=== PATIENT | female | born 1970 | race Caucasian/White ===

== ENCOUNTER 2017-02-16 15:59 | Emergency (ER) | payer BC ==
[~2017-02-16 15:59] MED LIST: ASPI81TA2 PO; CIPR500T94 PO; CITA20TA5 PO; LEVO50TA5 PO; LISI2.5T PO; LOSA100T6 PO; LOSA50TA2 PO; METF10002 PO; NAPR500T3 PO; PIOG30TA20 PO
[2017-02-16] MEDS ORDERED: IV NORMAL SALINE 1,000ML 1,000 ML IV SCH (17:16)
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
[2017-02-16] MEDS ORDERED: MORPHINE SULFATE 2 MG/ML DISP.SYRIN. ONE (17:21)
[2017-02-16] MEDS ORDERED: KETOROLAC 30 MG/ML VIAL. ONE (17:21)
[2017-02-16] MEDS ORDERED: IV NORMAL SALINE 1,000ML 1,000 ML ONE (17:21)
[2017-02-16] MEDS ORDERED: KETOROLAC 30 MG/ML VIAL. IV ONE (17:30)
[2017-02-16] MEDS ORDERED: MORPHINE SULFATE 2 MG/ML DISP.SYRIN. IV/SQ PRN (17:30)
[2017-02-16 17:50] LABS: BASO # 0.1 x10^3/uL (0.0-0.2); BASO % 1 % (0-3); EOS # 0.2 x10^3/uL (0.0-0.7); EOS % 2 % (0-3); HEMATOCRIT 47.2 % (36.0-47.0); HEMOGLOBIN 16.1 g/dL (12.0-15.5); LYMPH # 2.1 x10^3/uL (1.0-4.8); LYMPH % 18 % (24-48); MEAN CORPUSCULAR HEMOGLOBIN 31 pg (25-35); MEAN CORPUSCULAR HGB CONC 34 g/dL (31-37); MEAN CORPUSCULAR VOLUME 90 fL (79-100); MONO # 0.7 x10^3/uL (0.0-1.1); MONO % 6 % (0-9); NEUT # 8.6 x10^3uL (1.8-7.7); NEUT % 74 % (31-73); PLATELET COUNT 207 x10^3/uL (140-400); RED BLOOD COUNT 5.25 x10^6/uL (3.50-5.40); RED CELL DISTRIBUTION WIDTH 14.3 % (11.5-14.5); WHITE BLOOD COUNT 11.7 x10^3/uL (4.0-11.0)
[2017-02-16 18:01] LABS: ALBUMIN 3.9 g/dL (3.4-5.0); ALBUMIN/GLOBULIN RATIO 0.8 (1.0-1.7); CALCIUM 8.7 mg/dL (8.5-10.1); CREATININE 0.8 mg/dL (0.6-1.0); GFR 77.2; POTASSIUM 4.1 mmol/L (3.5-5.1); TOTAL BILIRUBIN 0.6 mg/dL (0.2-1.0); TOTAL PROTEIN 8.8 g/dL (6.4-8.2)
[2017-02-16 18:12] LABS: BILIRUBIN,URINE NEG (NEG); CLARITY,URINE TURBID; COLOR,URINE YELLOW; GLUCOSE,URINE NEG (NEG); NITRITE,URINE NEG (NEG); RBC,URINE OCC /HPF (0-2); UROBILINOGEN,URINE 0.2 mg/dL (0.2 mg/dL)
[2017-02-16 18:13] LABS: AMORPHOUS SEDIMENT,UR PRESENT /HPF; BACTERIA,URINE FEW /HPF (0-FEW); SQUAMOUS EPITHELIAL CELL,UR MOD /LPF
[2017-02-16] MEDS ORDERED: ONDA8TAB12 PO (18:33)
[2017-02-16] MEDS ORDERED: HYDR-79 PO (18:33)
[2017-02-16 18:50] VITALS: BP 99/58
--- NOTE | 2017-02-17 08:53 | RAD ---
Acute abdomen series History: Abdominal pain. Comparison: 11/05/2012. Findings: Frontal view of the chest. Cardiac silhouette appears within normal limits for size. No pneumoperitoneum or pneumothorax is identified. No acute infiltrate is seen. Supine and upright views of the abdomen. Several air-fluid levels are seen, but the loops of bowel have normal caliber. Bowel gas pattern is nonspecific. The right hip and proximal femur demonstrates postsurgical change. Cholecystectomy clips are present. Impression: No acute abnormality identified in the chest or abdomen.
== END 2017-02-16 18:51 | disposition home or self-care (01) ==
LOC: ER 15:59
DX: A08.4 Viral intestinal infection, unspecified (principal); E86.0 Dehydration; R19.7 Diarrhea, unspecified; R51 Headache; D72.829 Elevated white blood cell count, unspecified; R73.09 Other abnormal glucose; E03.9 Hypothyroidism, unspecified; E11.9 Type 2 diabetes mellitus without complications; E66.9 Obesity, unspecified; I10 Essential (primary) hypertension; Z88.2 Allergy status to sulfonamides
CPT/HCPCS: 36415; 74022; 80053; 81001; 85027; 96361; 96374; 96375; 99285; J1885; J2270; J7030

== ENCOUNTER → 2017-03-04 | Outpatient (CLI) | payer BC ==
[2017-02-16 18:50] VITALS: BP 99/58
[~2017-03-04] MED LIST changes: +HYDR-79 PO; +ONDA8TAB12 PO
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
== END | disposition home or self-care (01) ==
LOC: DXRADRC 09:55
PROVIDERS: ATTEND Physician Assistant Medical
DX: M16.11 Unilateral primary osteoarthritis, right hip (principal); V89.2XXD Person injured in unspecified motor-vehicle accident, traffic, subsequent encounter
CPT/HCPCS: 73501

== ENCOUNTER 2017-05-31 14:12 | Emergency (ER) | payer BC ==
[~2017-05-31 14:12] MED LIST changes: +ASPI-630 PO; -ASPI81TA2 PO; -PIOG30TA20 PO; +PIOG30TA41 PO
--- NOTE | 2017-05-31 14:19 | ED.ADGEN ---
Past History Past Medical History: Anxiety, Hypertension, Hypothyroid Past Surgical History: , Hysterectomy, Other Alcohol Use: Occasionally Drug Use: None Adult General Chief Complaint Chief Complaint Abdominal pain HPI HPI Patient is a 46 year old female who presents with abdominal pain. She suggested a started right lower quadrant has periumbilical in the middle. She states she did have a hard bowel movement yesterday. She states she's had numerous hernia surgeries on the right quadrant. She denies any fevers chills but did have one episode of vomiting today. She denies any blood in her stool or vomit. [facility] to be evaluated as her concerned that could be a incarcerated hernia. Review of Systems Review of Systems Constitutional: Denies fever or chills [] Eyes: Denies change in visual acuity, redness, or eye pain [] HENT: Denies nasal congestion or sore throat [] Respiratory: Denies cough or shortness of breath [] Cardiovascular: No additional information not addressed in HPI [] GI: Denies bloody stools or diarrhea, positive for abdominal pain, nausea, vomiting : Denies dysuria or hematuria [] Musculoskeletal: Denies back pain or joint pain [] Integument: Denies rash or skin lesions [] Neurologic: Denies headache, focal weakness or sensory changes [] Endocrine: Denies polyuria or polydipsia [] Current Medications Current Medications Current Medications Medications (Trade) Dose Ordered Sig/Arian Start Time Stop Time Status Last Admin Dose Admin Iohexol (Omnipaque 240 Mg/ml) 30 ml 1X ONCE 05/31/17 15:00 05/31/17 15:01 DC 05/31/17 16:13 30 ML Iohexol (Omnipaque 300 Mg/ml) 75 ml 1X ONCE 05/31/17 15:20 05/31/17 15:21 DC Morphine Sulfate (Morphine 4mg Syringe) 4 mg PRN Q15MIN PRN 05/31/17 14:45 05/31/17 18:34 DC 05/31/17 15:00 4 MG Ondansetron HCl (Zofran) 4 mg 1X ONCE 05/31/17 15:10 05/31/17 15:11 DC 05/31/17 15:00 4 MG Sodium Chloride 1,000 ml @ 1,000 mls/hr 1X ONCE 05/31/17 18:00 05/31/17 18:34 DC Allergies Allergies Allergies Coded Allergies Type Severity Reaction Last Updated Verified Sulfa (Sulfonamide Antibiotics) Allergy Mild joints swell 08/23/15 Yes Physical Exam Physical Exam Constitutional: Well developed, well nourished, no acute distress, non-toxic appearance. [] HENT: Normocephalic, atraumatic, bilateral external ears normal, oropharynx moist, no oral exudates, nose normal. [] Eyes: PERRLA, EOMI, conjunctiva normal, no discharge. [] Neck: Normal range of motion, no tenderness, supple, no stridor. [] Cardiovascular:Heart rate regular rhythm, no murmur [] Lungs & Thorax: Bilateral breath sounds clear to auscultation [] Abdomen: Bowel sounds normal, soft, palpation the right lower quadrant, no rebound or guarding, no masses, no pulsatile masses. [] Skin: Warm, dry, no erythema, no rash. [] Back: No tenderness, no CVA tenderness. [] Extremities: No tenderness, no cyanosis, no clubbing, ROM intact, no edema. [] Neurologic: Alert and oriented X 3, normal motor function, normal sensory function, no focal deficits noted. [] Psychologic: Affect normal, judgement normal, mood normal. [] Current Patient Data Vital Signs Vital Signs Date Time Temp Pulse Resp B/P (MAP) Pulse Ox O2 Delivery O2 Flow Rate FiO2 05/31/17 14:15 98.2 103 16 94 Room Air Lab Results Laboratory Tests Test 05/31/17 14:50 05/31/17 16:00 White Blood Count 14.7 x10^3/uL (4.0-11.0) H Red Blood Count 5.10 x10^6/uL (3.50-5.40) Hemoglobin 15.6 g/dL (12.0-15.5) H Hematocrit 45.1 % (36.0-47.0) Mean Corpuscular Volume 88 fL (79-100) Mean Corpuscular Hemoglobin 31 pg (25-35) Mean Corpuscular Hemoglobin Concent 35 g/dL (31-37) Red Cell Distribution Width 12.7 % (11.5-14.5) Platelet Count 216 x10^3/uL (140-400) Neutrophils (%) (Auto) 88 % (31-73) H Lymphocytes (%) (Auto) 6 % (24-48) L Monocytes (%) (Auto) 4 % (0-9) Eosinophils (%) (Auto) 1 % (0-3) Basophils (%) (Auto) 0 % (0-3) Neutrophils # (Auto) 13.0 x10^3uL (1.8-7.7) H Lymphocytes # (Auto) 0.9 x10^3/uL (1.0-4.8) L Monocytes # (Auto) 0.6 x10^3/uL (0.0-1.1) Eosinophils # (Auto) 0.1 x10^3/uL (0.0-0.7) Basophils # (Auto) 0.1 x10^3/uL (0.0-0.2) Prothrombin Time 11.2 SEC (9.4-11.4) Prothrombin Time INR 1.1 (0.9-1.1) PTT 25 SEC (23-33) Sodium Level 135 mmol/L (136-145) L Potassium Level 3.9 mmol/L (3.5-5.1) Chloride Level 99 mmol/L (98-107) Carbon Dioxide Level 25 mmol/L (21-32) Anion Gap 11 (6-14) Blood Urea Nitrogen 18 mg/dL (7-20) Creatinine 0.8 mg/dL (0.6-1.0) Estimated GFR (Cockcroft-Gault) 77.2 Glucose Level 126 mg/dL (70-99) H Calcium Level 9.7 mg/dL (8.5-10.1) Total Bilirubin 0.9 mg/dL (0.2-1.0) Direct Bilirubin 0.3 mg/dL (0.0-0.2) H Aspartate Amino Transferase (AST) 25 U/L (15-37) Alanine Aminotransferase (ALT) 33 U/L (14-59) Alkaline Phosphatase 60 U/L (46-116) Creatine Kinase 66 U/L (26-192) Creatine Kinase MB (Mass) 2.5 ng/mL (0.0-3.6) Creatine Kinase MB Relative Index 3.8 % (0-4) Troponin I Quantitative < 0.017 ng/mL (0-0.055) Total Protein 9.4 g/dL (6.4-8.2) H Albumin 4.4 g/dL (3.4-5.0) Lipase 181 U/L (73-393) Serum Test, Qualitative Negative (NEG) Urine Collection Type Void Urine Color Yellow Urine Clarity Clear Urine pH 6.5 Urine Specific [place] 1.015 Urine Protein 30 mg/dl (NEG-TRACE) Urine Glucose (UA) Neg mg/dL (NEG) Urine Ketones (Stick) Trace mg/dL (NEG) Urine Blood Neg (NEG) Urine Nitrite Neg (NEG) Urine Bilirubin Neg (NEG) Urine Urobilinogen Dipstick 0.2 mg/dL (0.2 mg/dL) Urine Leukocyte Esterase Neg (NEG) Urine RBC 0 /HPF (0-2) Urine WBC 0 /HPF (0-4) Urine Squamous Epithelial Cells Occ /LPF Urine Bacteria 0 /HPF (0-FEW) Urine Opiates Screen Pos (NEG) Urine Methadone Screen Neg (NEG) Urine Barbiturates Neg (NEG) Urine Phencyclidine Screen Neg (NEG) Urine Amphetamine/Methamphetamine Neg (NEG) Urine Benzodiazepines Screen Neg (NEG) Urine Cocaine Screen Neg (NEG) Urine Cannabinoids Screen Neg (NEG) Urine Ethyl Alcohol Neg (NEG) EKG EKG [] Radiology/Procedures Radiology/[place] [address] IMAGING REPORT Signed PATIENT: SVETLANA MCKNIGHT ACCOUNT: [id number] : 1970 LOCATION: ER AGE: 46 SEX: F EXAM STATUS: REG ER ORD. PHYSICIAN: JAVED FLORES MD REASON: abd pain PROCEDURE: CT ABD PELV W/ORAL&IV CONTRAST Exam performed: CT scan of the abdomen and pelvis with contrast Clinical Indication: Right-sided abdominal pain for one day Date of Service: 05/31/2017 comparison: None available Technique: Contiguous helical acquisitions are obtained from the lung bases to the pelvis during intravenous administration of [75 cc of Omnipaque 300]. Oral contrast was given. Sagittal and coronal reformatted images were obtained and reviewed. CT abdomen findings: The lung bases appear essentially clear. Visualized heart is normal. The liver, spleen and pancreas appears unremarkable. Cholecystectomy. Both adrenal glands and bilateral kidneys appear normal with symmetric excretion of contrast via both kidneys. The small bowel loops mildly dilated and fluid-filled extending up to the right inguinal hernia which also contains mildly dilated small bowel loops and is probably the cause of obstruction. No inflammatory changes are seen. Aorta is normal in caliber. There is no retroperitoneal lymphadenopathy or mass lesions. No bowel related inflammatory stranding is noted. No obvious stranding is seen in the pericecal region. CT pelvis findings: The pelvic bowel loops are nondilated and unremarkable. The urinary bladder is decompressed. Hysterectomy. Interrogation of bone windows demonstrates no obvious bony abnormality. Sagittal and coronal reformatted images were obtained and reviewed which demonstrate no additional findings. Impression abdomen and pelvis : 1. Right lower abdominal hernia containing mildly dilated small bowel loops with upstream dilated small bowel loops consistent with small bowel obstruction. The critical results were given to the ER physician Dr. Flores in the emergency room soon after completion of the study at 5:48 PM PQRS Compliance Statement: One or more of the following individualized dose reduction techniques were utilized for this examination: 1. Automated exposure control 2. Adjustment of the mA and/or kV according to patient size 3. Use of iterative reconstruction technique Electronically signed by: Ronna Trevino MD (05/31/2017 5:48 PM) [facility] DICTATED AND SIGNED BY: RONNA TREVINO MD DATE: 05/31/17 7129 CC: JAVED FLORES MD; OLGA SIMTH ~ Course & Med Decision Making Course & Med Decision Making Pertinent Labs and Imaging studies reviewed. (See chart for details) CT scan was read out as a hernia with small bowel obstruction with a transition point likely the hernia. I spoke directly to the radiologist who stated it was not strangulated but could likely he come that away easily. Spoke with Dr. Tovar for admission and Dr. Nina who wants the patient to be transferred emergently to [place] to go immediately to the OR. EMS is been contacted and the patient will be transferred emergently to the OR. Patient is agreeable to the plan and is in stable condition at this time. Critical care time on this patient excluding procedures was 45 minutes. It consisted of reviewing medical records, labs, pain control for the patient, reviewing images, speaking with consultants such as radiology and surgery, making arrangements for emergently transferring the patient to [place] to go directly to the OR. Final Impression Final Impression Abdominal pain Small bowel obstruction Problems: Dragon Disclaimer Dragon Disclaimer This electronic medical record was generated, in whole or in part, using a voice recognition dictation system. JAVED FLORES MD May 31, 2017 14:19
[2017-05-31] MEDS ORDERED: IV NORMAL SALINE 1,000ML 1,000 ML IV SCH (14:34)
[2017-05-31] MEDS ORDERED: MORPHINE SULFATE 4 MG/ML DISP.SYRIN. IV/SQ PRN (14:45)
[2017-05-31] MEDS ORDERED: IOHEXOL 240 MG/ML 50ML VIAL. PO ONE (15:00)
[2017-05-31] MEDS ORDERED: ONDANSETRON PF 4 MG/2 ML VIAL. IV ONE (15:10)
[2017-05-31 15:20] LABS: PREG TEST PT QUAL NEGATIVE (NEG)
[2017-05-31] MEDS ORDERED: IOHEXOL 300 MG/ML 75 ML VIAL. IV ONE (15:20)
[2017-05-31 15:23] LABS: BASO # 0.1 x10^3/uL (0.0-0.2); BASO % 0 % (0-3); EOS # 0.1 x10^3/uL (0.0-0.7); EOS % 1 % (0-3); HEMATOCRIT 45.1 % (36.0-47.0); HEMOGLOBIN 15.6 g/dL (12.0-15.5); LYMPH # 0.9 x10^3/uL (1.0-4.8); LYMPH % 6 % (24-48); MEAN CORPUSCULAR HEMOGLOBIN 31 pg (25-35); MEAN CORPUSCULAR HGB CONC 35 g/dL (31-37); MEAN CORPUSCULAR VOLUME 88 fL (79-100); MONO # 0.6 x10^3/uL (0.0-1.1); MONO % 4 % (0-9); NEUT % 88 % (31-73); PLATELET COUNT 216 x10^3/uL (140-400); RED CELL DISTRIBUTION WIDTH 12.7 % (11.5-14.5); WHITE BLOOD COUNT 14.7 x10^3/uL (4.0-11.0)
[2017-05-31 15:33] LABS: ALBUMIN 4.4 g/dL (3.4-5.0); CALCIUM 9.7 mg/dL (8.5-10.1); CREATININE 0.8 mg/dL (0.6-1.0); DIRECT BILIRUBIN 0.3 mg/dL (0.0-0.2); GFR 77.2; POTASSIUM 3.9 mmol/L (3.5-5.1); TOTAL BILIRUBIN 0.9 mg/dL (0.2-1.0); TOTAL PROTEIN 9.4 g/dL (6.4-8.2)
--- NOTE | 2017-05-31 15:47 | EKG ---
[address] [address] Test Date: 2017-05-31 Test Time: 14:47:58 Pat Name: SVETLANA MCKNIGHT Department: Room: Gender: F Linen Controller: BHARATI : 1970 Requested By: JAVED FLORES Order Number: [id number] Reading MD: Measurements Intervals Makinen Rate: 71 P: 21 PA: 154 QRS: 0 QRSD: 78 T: 25 QT: 386 QTc: 424 Interpretive Statements SINUS RHYTHM LEFTWARD AXIS QRS(T) CONTOUR ABNORMALITY CONSIDER ANTEROSEPTAL MYOCARDIAL DAMAGE RI6.01 Unconfirmed report No previous ECG available for comparison
[2017-05-31 16:19] LABS: BILIRUBIN,URINE NEG (NEG); CLARITY,URINE CLEAR; COLOR,URINE YELLOW; GLUCOSE,URINE NEG (NEG)
[2017-05-31 16:20] LABS: BACTERIA,URINE 0 /HPF (0-FEW); NITRITE,URINE NEG (NEG); RBC,URINE 0 /HPF (0-2); UROBILINOGEN,URINE 0.2 mg/dL (0.2 mg/dL); WBC,URINE 0 /HPF (0-4)
[2017-05-31 16:21] LABS: SQUAMOUS EPITHELIAL CELL,UR OCC /LPF
[2017-05-31 16:26] LABS: AMPHETAMINE/METHAMPHETAMINE NEG (NEG); BARBITURATES NEG (NEG); BENZODIAZEPINES NEG (NEG); CANNABINOIDS NEG (NEG); COCAINE NEG (NEG); METHADONE NEG (NEG); OPIATES POS (NEG); PHENCYCLIDINE NEG (NEG)
--- NOTE | 2017-05-31 17:51 | RAD ---
Exam performed: CT scan of the abdomen and pelvis with contrast Clinical Indication: Right-sided abdominal pain for one day Date of Service: 05/31/2017 comparison: None available Technique: Contiguous helical acquisitions are obtained from the lung bases to the pelvis during intravenous administration of [75 cc of Omnipaque 300]. Oral contrast was given. Sagittal and coronal reformatted images were obtained and reviewed. CT abdomen findings: The lung bases appear essentially clear. Visualized heart is normal. The liver, spleen and pancreas appears unremarkable. Cholecystectomy. Both adrenal glands and bilateral kidneys appear normal with symmetric excretion of contrast via both kidneys. The small bowel loops mildly dilated and fluid-filled extending up to the right inguinal hernia which also contains mildly dilated small bowel loops and is probably the cause of obstruction. No inflammatory changes are seen. Aorta is normal in caliber. There is no retroperitoneal lymphadenopathy or mass lesions. No bowel related inflammatory stranding is noted. No obvious stranding is seen in the pericecal region. CT pelvis findings: The pelvic bowel loops are nondilated and unremarkable. The urinary bladder is decompressed. Hysterectomy. Interrogation of bone windows demonstrates no obvious bony abnormality. Sagittal and coronal reformatted images were obtained and reviewed which demonstrate no additional findings. Impression abdomen and pelvis : 1. Right lower abdominal hernia containing mildly dilated small bowel loops with upstream dilated small bowel loops consistent with small bowel obstruction. The critical results were given to the ER physician Dr. Kingsley in the emergency room soon after completion of the study at 5:48 PM PQRS Compliance Statement: One or more of the following individualized dose reduction techniques were utilized for this examination: 1. Automated exposure control 2. Adjustment of the mA and/or kV according to patient size 3. Use of iterative reconstruction technique Electronically signed by: Ronna Trevino MD (05/31/2017 5:48 PM) [facility]
[2017-05-31] MEDS ORDERED: IV NORMAL SALINE 1,000ML 1,000 ML IV ONE (18:00)
[2017-05-31 18:13] VITALS: BP 128/76
== END 2017-05-31 18:30 ==
LOC: ER 14:12
DX: K56.69 Other intestinal obstruction (principal); E03.9 Hypothyroidism, unspecified; F41.9 Anxiety disorder, unspecified; I10 Essential (primary) hypertension; Z88.2 Allergy status to sulfonamides
CPT/HCPCS: 36415; 74177; 80048; 80076; 80305; 80320; 81001; 82553; 83690; 84484; 84703; 85027; 85610; 85730; 93005; 96361; 96374; 96375; 99291; J2270; J2405; Q9966; G0481; 99285-25; J7030

== ENCOUNTER 2017-06-18 22:01 | Emergency (ER) | payer BC ==
[~2017-06-18] VITALS: Ht 160 cm; Wt 70.8 kg
[2017-06-18] MEDS ORDERED: IV NORMAL SALINE 1,000ML 1,000 ML IV ONE ×2 (22:30→23:30)
[2017-06-18] MEDS ORDERED: MORPHINE SULFATE 4 MG/ML DISP.SYRIN. IV/SQ PRN (22:30)
[2017-06-18] MEDS ORDERED: ONDANSETRON PF 4 MG/2 ML VIAL. IV ONE (22:30)
[2017-06-18] MEDS ORDERED: IOHEXOL 300 MG/ML 75 ML VIAL. IV ONE (22:40)
[2017-06-18] MEDS ORDERED: IOHEXOL 240 MG/ML 50ML VIAL. PO ONE (22:40)
[2017-06-18 22:44] LABS: BASO # 0.1 x10^3/uL (0.0-0.2); BASO % 1 % (0-3); EOS # 0.4 x10^3/uL (0.0-0.7); EOS % 5 % (0-3); HEMATOCRIT 39.7 % (36.0-47.0); HEMOGLOBIN 13.6 g/dL (12.0-15.5); LYMPH # 2.6 x10^3/uL (1.0-4.8); LYMPH % 31 % (24-48); MEAN CORPUSCULAR HEMOGLOBIN 30 pg (25-35); MEAN CORPUSCULAR HGB CONC 34 g/dL (31-37); MEAN CORPUSCULAR VOLUME 89 fL (79-100); MONO # 0.6 x10^3/uL (0.0-1.1); MONO % 7 % (0-9); NEUT # 4.6 x10^3uL (1.8-7.7); NEUT % 55 % (31-73); PLATELET COUNT 204 x10^3/uL (140-400); RED BLOOD COUNT 4.48 x10^6/uL (3.50-5.40); RED CELL DISTRIBUTION WIDTH 12.6 % (11.5-14.5); WHITE BLOOD COUNT 8.3 x10^3/uL (4.0-11.0)
[2017-06-18 22:54] LABS: ALBUMIN 3.4 g/dL (3.4-5.0); ALBUMIN/GLOBULIN RATIO 0.8 (1.0-1.7); CALCIUM 8.7 mg/dL (8.5-10.1); CREATININE 0.9 mg/dL (0.6-1.0); GFR 67.4; POTASSIUM 3.8 mmol/L (3.5-5.1); TOTAL BILIRUBIN 0.3 mg/dL (0.2-1.0); TOTAL PROTEIN 7.6 g/dL (6.4-8.2)
[2017-06-18] MEDS ORDERED: HYDROmorphone PF 1 MG/ML DISP.SYRIN IV/SQ PRN (23:00)
--- NOTE | 2017-06-19 00:13 | RAD ---
CT abdomen and pelvis with contrast HISTORY: Severe abdominal pain, history of abdominal hernia and small bowel obstruction repaired. Severe periumbilical and right lower quadrant abdominal pain. TECHNIQUE: Helical CT imaging abdomen and pelvis with oral contrast and 75 mL Omnipaque 300 intravenous contrast. Abdomen findings: Lumbar scoliosis and right L5 spondylolysis. 2 mm right middle lobe pulmonary nodule image 2 is stable. Hypodensity of the liver likely fatty. Mild irregular ductal dilation likely related to cholecystectomy, stable. Kidneys, adrenals, pancreas, spleen unremarkable. Right lower quadrant hernia has been repaired. No bowel obstruction or inflammation. Post surgical change distal small bowel and enterocolic anastomosis at the right abdomen. Appendectomy. No peritoneal free fluid or adenopathy. At the right lower quadrant retroperitoneal abdomen inferior of the kidney and lateral and anterior of the iliacus and psoas muscles there is a hematoma which measures 18 cm longitudinal by 8 cm short axis diameter at the hematoma inferior margin adjacent of the external iliac vessels there is a 1 cm oblong hyperdensity axial images 67, coronal image 29 which could represent a region of contrast extravasation versus a hypervascular lymph node.. Separately at the right lower quadrant abdominal wall at site of hernia repair there is a hematoma within the rectus abdominous which measures 16 cm longitudinal and 8 cm short axis diameter with a subcentimeter focus of hyperdense contrast extravasation superiorly, this hematoma compresses adjacent small bowel loops. There could be communication between the 2 hematomas inferiorly. Pelvis findings: Hematomas at the right lower quadrant described in the abdomen section. Hysterectomy. 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 Postsurgical changes right femur and advanced osteoarthritis of the right hip. IMPRESSION: 1. Right lower quadrant abdominal wall intramuscular hematoma with small focus of contrast extravasation indicating active bleeding with a separate retroperitoneal hematoma within the right lower quadrant abdomen with possible area of contrast extravasation from active bleeding adjacent of the right external iliac vessels. There could be communication between these 2 hematomas within the pelvis. See discussion above. 2. Post surgical changes of the bowel. No bowel obstruction. 3. 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 Critical results called to Dr. Mcmillan at 12:07 AM June 19, 2017. Exposure: One or more of the following individualized dose reduction techniques were utilized for this examination: 1. Automated exposure control 2. Adjustment of the mA and/or kV according to patient size 3. Use of iterative reconstruction technique Electronically signed by: Oscar Olivia MD (06/19/2017 12:09 AM) [facility]
--- NOTE | 2017-06-19 00:31 | PHYS DOC ---
Past History Past Medical History: Depression, Diabetes, Hypertension, Hyperthyroid Past Surgical History: Appendectomy, Cholecystectomy, , Hysterectomy, Other Alcohol Use: None Drug Use: None Adult General Chief Complaint Chief Complaint: ABDOMINAL PAIN HPI HPI Patient is a 46 year old female who presents with abdominal pain. The patient reports sudden onset of right lower quadrant & periumbilical pain about 2 hours prior to arrival while at rest. She reports nausea. She denies fevers/chills, vomiting, diarrhea, constipation, dysuria/hematuria, vaginal bleeding/ discharge. She underwent surgery on 05/31 for incarcerated abdominal hernia with small bowel obstruction by Dr. Knight at [facility]. She was seen for follow up 2 days ago & has been without complaints since the time of her surgery. Review of Systems Review of Systems Constitutional: Denies fever or chills Eyes: Denies change in visual acuity HENT: Denies nasal congestion or sore throat Respiratory: Denies cough or shortness of breath Cardiovascular: Denies chest pain or edema GI: Reports abdominal pain, nausea, denies vomiting, bloody stools or diarrhea : Denies dysuria or hematuria Musculoskeletal: Denies back pain or joint pain Integument: Denies rash or skin lesions Neurologic: Denies headache, focal weakness or sensory changes Current Medications Current Medications Current Medications Medications (Trade) Dose Ordered Sig/Arian Start Time Stop Time Status Last Admin Dose Admin Hydromorphone HCl (Dilaudid) 1 mg PRN Q15MIN PRN 06/18/17 23:00 06/19/17 22:59 Iohexol (Omnipaque 240 Mg/ml) 30 ml 1X ONCE 06/18/17 22:40 06/18/17 22:41 DC 06/18/17 23:39 30 ML Iohexol (Omnipaque 300 Mg/ml) 75 ml 1X ONCE 06/18/17 22:40 06/18/17 22:41 DC 06/18/17 23:39 75 ML Morphine Sulfate (Morphine 4mg Syringe) 4 mg PRN Q15MIN PRN 06/18/17 22:30 06/18/17 22:57 DC 06/18/17 22:33 4 MG Ondansetron HCl (Zofran) 4 mg 1X ONCE 06/18/17 22:30 06/18/17 22:31 DC 06/18/17 22:33 4 MG Sodium Chloride 1,000 ml @ 1,000 mls/hr 1X ONCE 06/18/17 23:30 06/19/17 00:29 06/18/17 23:23 1,000 MLS/HR Allergies Allergies Allergies Coded Allergies Type Severity Reaction Last Updated Verified Sulfa (Sulfonamide Antibiotics) Allergy Mild joints swell 08/23/15 Yes Physical Exam Physical Exam Constitutional: Well developed, well nourished, no acute distress, non-toxic appearance. HENT: Normocephalic, atraumatic, bilateral external ears normal, oropharynx moist, nose normal. Eyes: conjunctiva normal, no discharge. Neck: supple, no stridor. Cardiovascular: RRR, no murmurs, no edema. Lungs & Thorax: LCTAB, no wheezing, no respiratory distress. Abdomen: soft, RLQ & periumbilical tenderness with guarding, no rebound tenderness, firm with palpation over these areas, nondistended. no pulsatile masses. Skin: Warm, dry, no erythema, no rash. Back: No CVA tenderness. Extremities: No tenderness, no edema. Neurologic: Alert and oriented X 3, no focal deficits noted. Psychologic: Affect normal, judgement normal, mood normal. Current Patient Data Vital Signs Vital Signs Date Time Temp Pulse Resp B/P (MAP) Pulse Ox O2 Delivery O2 Flow Rate FiO2 06/18/17 23:54 76 16 108/59 (75) 95 Room Air 06/18/17 22:05 98.5 Lab Results Laboratory Tests Test 06/18/17 22:26 White Blood Count 8.3 x10^3/uL (4.0-11.0) Red Blood Count 4.48 x10^6/uL (3.50-5.40) Hemoglobin 13.6 g/dL (12.0-15.5) Hematocrit 39.7 % (36.0-47.0) Mean Corpuscular Volume 89 fL (79-100) Mean Corpuscular Hemoglobin 30 pg (25-35) Mean Corpuscular Hemoglobin Concent 34 g/dL (31-37) Red Cell Distribution Width 12.6 % (11.5-14.5) Platelet Count 204 x10^3/uL (140-400) Neutrophils (%) (Auto) 55 % (31-73) Lymphocytes (%) (Auto) 31 % (24-48) Monocytes (%) (Auto) 7 % (0-9) Eosinophils (%) (Auto) 5 % (0-3) H Basophils (%) (Auto) 1 % (0-3) Neutrophils # (Auto) 4.6 x10^3uL (1.8-7.7) Lymphocytes # (Auto) 2.6 x10^3/uL (1.0-4.8) Monocytes # (Auto) 0.6 x10^3/uL (0.0-1.1) Eosinophils # (Auto) 0.4 x10^3/uL (0.0-0.7) Basophils # (Auto) 0.1 x10^3/uL (0.0-0.2) Sodium Level 141 mmol/L (136-145) Potassium Level 3.8 mmol/L (3.5-5.1) Chloride Level 103 mmol/L (98-107) Carbon Dioxide Level 29 mmol/L (21-32) Anion Gap 9 (6-14) Blood Urea Nitrogen 17 mg/dL (7-20) Creatinine 0.9 mg/dL (0.6-1.0) Estimated GFR (Cockcroft-Gault) 67.4 BUN/Creatinine Ratio 19 (6-20) Glucose Level 200 mg/dL (70-99) H Lactic Acid Level 2.3 mmol/L (0.4-2.0) H Calcium Level 8.7 mg/dL (8.5-10.1) Total Bilirubin 0.3 mg/dL (0.2-1.0) Aspartate Amino Transferase (AST) 19 U/L (15-37) Alanine Aminotransferase (ALT) 30 U/L (14-59) Alkaline Phosphatase 75 U/L (46-116) Total Protein 7.6 g/dL (6.4-8.2) Albumin 3.4 g/dL (3.4-5.0) Albumin/Globulin Ratio 0.8 (1.0-1.7) L Lipase 234 U/L (73-393) EKG EKG [] Radiology/Procedures Radiology/Procedures PROCEDURE: CT ABD PELV W/ORAL&IV CONTRAST CT abdomen and pelvis with contrast HISTORY: Severe abdominal pain, history of abdominal hernia and small bowel obstruction repaired. Severe periumbilical and right lower quadrant abdominal pain. TECHNIQUE: Helical CT imaging abdomen and pelvis with oral contrast and 75 mL Omnipaque 300 intravenous contrast. Abdomen findings: Lumbar scoliosis and right L5 spondylolysis. 2 mm right middle lobe pulmonary nodule image 2 is stable. Hypodensity of the liver likely fatty. Mild irregular ductal dilation likely related to cholecystectomy, stable. Kidneys, adrenals, pancreas, spleen unremarkable. Right lower quadrant hernia has been repaired. No bowel obstruction or inflammation. Post surgical change distal small bowel and enterocolic anastomosis at the right abdomen. Appendectomy. No peritoneal free fluid or adenopathy. At the right lower quadrant retroperitoneal abdomen inferior of the kidney and lateral and anterior of the iliacus and psoas muscles there is a hematoma which measures 18 cm longitudinal by 8 cm short axis diameter at the hematoma inferior margin adjacent of the external iliac vessels there is a 1 cm oblong hyperdensity axial images 67, coronal image 29 which could represent a region of contrast extravasation versus a hypervascular lymph node.. Separately at the right lower quadrant abdominal wall at site of hernia repair there is a hematoma within the rectus abdominous which measures 16 cm longitudinal and 8 cm short axis diameter with a subcentimeter focus of hyperdense contrast extravasation superiorly, this hematoma compresses adjacent small bowel loops. There could be communication between the 2 hematomas inferiorly. Pelvis findings: Hematomas at the right lower quadrant described in the abdomen section. Hysterectomy. 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 Postsurgical changes right femur and advanced osteoarthritis of the right hip. IMPRESSION: 1. Right lower quadrant abdominal wall intramuscular hematoma with small focus of contrast extravasation indicating active bleeding with a separate retroperitoneal hematoma within the right lower quadrant abdomen with possible area of contrast extravasation from active bleeding adjacent of the right external iliac vessels. There could be communication between these 2 hematomas within the pelvis. See discussion above. 2. Post surgical changes of the bowel. No bowel obstruction. 3. 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 Critical results called to Dr. Mcmillan at 12:07 AM June 19, 2017. Exposure: One or more of the following individualized dose reduction techniques were utilized for this examination: 1. Automated exposure control 2. Adjustment of the mA and/or kV according to patient size 3. Use of iterative reconstruction technique Electronically signed by: Keny Olivia MD (06/19/2017 12:09 AM) [facility] DICTATED AND SIGNED BY: KENY OLIVIA MD DATE: 06/18/17 5077[] Course & Med Decision Making Course & Med Decision Making Pertinent Labs and Imaging studies reviewed. (See chart for details) The patient presents with postoperative abdominal pain. Gave IV fluids, zofran , pain medication. She had brief hypotension with systolic blood pressure of 89 , improving to 111 after administration of IV fluids. She did receive 2 L of normal saline in the emergency department. Not tachycardic, afebrile. Hemoglobin stable at 13.6, normal white blood cell count. CT of the abdomen and pelvis shows large right lower quadrant abdominal wall and retroperitoneal hematoma. Consulted with Dr. Knight of general surgery who recommends transfer to [facility] and recommends consultation with interventional radiology for possible embolization. I did discuss at length with Dr. Arreola of interventional radiology who plans to review the images to determine next steps treatment. Discussed with Dr. Tay who agrees to accept transfer for direct admission. The patient is being transferred in guarded condition. Critical care time: 40 minutes [] Dragon Disclaimer Dragon Disclaimer This chart was dictated in whole or in part using Voice Recognition software in a busy, high-work load, and often noisy Emergency Department environment. It may contain unintended and wholly unrecognized errors or omissions. Departure Departure: Impression: Primary Impression: Abdominal wall hematoma Additional Impressions: Retroperitoneal hematoma Lactic acidosis Disposition: 05 XFER OTHER Condition: GUARDED Referrals: OLGA SMITH (PCP) Problem Qualifiers GREG STAPLES MD Jun 19, 2017 00:31
[2017-06-19 00:58] VITALS: BP 122/70
[2017-06-19 01:12] LABS: BACTERIA,URINE 0 /HPF (0-FEW); BILIRUBIN,URINE NEG (NEG); CLARITY,URINE CLEAR; COLOR,URINE YELLOW; GLUCOSE,URINE NEG (NEG); NITRITE,URINE NEG (NEG); RBC,URINE 0 /HPF (0-2); SQUAMOUS EPITHELIAL CELL,UR FEW /LPF; UROBILINOGEN,URINE 0.2 mg/dL (0.2 mg/dL); WBC,URINE RARE /HPF (0-4)
[2017-06-19] MEDS ORDERED: OXYBUTYNIN CHLORIDE 5 MG TABLET PO ONE (01:30)
[2017-06-19 01:44] LABS: HEMOGLOBIN ISTAT 11.6 gm/dL; POTASSIUM ISTAT 4.1 mmol/L (3.5-5.0)
[2017-06-19] MEDS ORDERED: IV NORMAL SALINE 1,000ML 1,000 ML IV SCH (01:45)
== END 2017-06-19 02:18 | disposition short-term general hospital (02) ==
LOC: ER 22:01
DX: S30.1XXA Contusion of abdominal wall, initial encounter (principal); S36.892A Contusion of other intra-abdominal organs, initial encounter; G89.18 Other acute postprocedural pain; E87.2 Acidosis; E11.9 Type 2 diabetes mellitus without complications; I10 Essential (primary) hypertension; Z88.2 Allergy status to sulfonamides; Z90.49 Acquired absence of other specified parts of digestive tract; Z90.710 Acquired absence of both cervix and uterus; Z98.890 Other specified postprocedural states; X58.XXXA Exposure to other specified factors, initial encounter; E05.90 Thyrotoxicosis, unspecified without thyrotoxic crisis or storm; Y93.89 Activity, other specified; Y99.8 Other external cause status; Y92.89 Other specified places as the place of occurrence of the external cause
CPT/HCPCS: 36415; 74177; 80047; 80053; 81001; 83605; 83690; 85027; 85610; 85730; 96361; 96374; 96375; 99291; J2270; J2405; Q9966; Q9967; J7030

== ENCOUNTER → 2018-01-02 | Outpatient (CLI) | payer BC ==
[~2018-01-02] MED LIST changes: +IOHEXOL 240 MG/ML 50ML VIAL. ONE; +IOHEXOL 300 MG/ML 75 ML VIAL. IV ONE; +NAPR-514 PO; -NAPR500T3 PO
--- NOTE | 2018-01-02 14:37 | RAD ---
CT abdomen and pelvis with contrast Indication: RECURRING HERNIA PRIOR CT SENT. . Technique: Intravenous contrast is given. Oral contrast was given. Comparison: June 18, 2017 Exposure: One or more of the following individualized dose reduction techniques were utilized for this examination: 1. Automated exposure control 2. Adjustment of the mA and/or kV according to patient size 3. Use of iterative reconstruction technique. FINDINGS: Lower thorax: Lung bases are clear. Pneumoperitoneum:No gross pneumoperitoneum. Liver: Mildly hypodense could indicate fatty infiltration. Spleen: Unremarkable Pancreas: Unremarkable Adrenals:No evidence of mass. Kidneys:Unremarkable Gallbladder: Surgically absent Aorta: Nonaneurysmal. Dissection and ectasia of the left common iliac artery appears similar as the prior study. Lymph nodes: Small retroperitoneal lymph nodes are stable. No significant lymph node enlargement GI tract: No bowel obstruction. No paracolonic inflammation. Appendix: Not visualized. Surgical clips in the right lower quadrant. Ascites: No gross ascites. Urinary bladder: Not opacified, but no apparent abnormality. Hypodensity in the right adnexa measures 3 cm unchanged. This could represent ovarian tissue versus a complex ovarian cyst. Bones: Spondylolysis of L5 on the right. Degenerative changes at the right hip. There is deformity of the right proximal femur. Subchondral cysts at the right femoral head. Postsurgical changes at the right proximal femur. There is also deformity of the left pubic bone could be related to old trauma. There is mild soft tissue at the inferior right abdominal wall, in the location of the previously seen hematoma. There are some surgical clips in this area. There is a right lower quadrant anterior abdominal wall hernia, just to the right of midline, containing small bowel loop. IMPRESSION: 1. Only mild residual tissue at the lower right abdominal wall, at the site of the previously seen hematoma. 2. Right lower anterior abdominal wall hernia containing small bowel loops. No evidence of bowel obstruction. 3. Low-density lesion of the right adnexa appears stable, may represent ovarian tissue versus complex ovarian cyst. 4. Left common iliac artery dissection and ectasia appears similar to prior exam. Electronically signed by: Mateo Sheridan MD (01/02/2018 2:33 PM) [id number]
== END | disposition home or self-care (01) ==
LOC: CT 12:53
PROVIDERS: ATTEND Surgery
DX: K45.8 Other specified abdominal hernia without obstruction or gangrene (principal); M47.896 Other spondylosis, lumbar region; M16.11 Unilateral primary osteoarthritis, right hip; Z90.49 Acquired absence of other specified parts of digestive tract
CPT/HCPCS: 74177; Q9966; Q9967

== ENCOUNTER 2018-08-26 02:47 | Emergency (ER) | payer BC ==
[~2018-08-26] VITALS: Ht 160 cm; Wt 73.9 kg
[~2018-08-26 02:47] MED LIST changes: -CITA20TA5 PO; +CITA20TA6 PO; -IOHEXOL 240 MG/ML 50ML VIAL. ONE; -IOHEXOL 300 MG/ML 75 ML VIAL. IV ONE; -LOSA100T6 PO; +LOSA100T7 PO; -METF10002 PO; +METF10007 PO
[2018-08-26 02:50] VITALS: BP 138/79
[2018-08-26] MEDS ORDERED: MELO7.5T5 PO (03:02)
[2018-08-26] MEDS ORDERED: HYDR-971 PO (03:02)
--- NOTE | 2018-08-26 03:04 | PHYS DOC ---
Adult General Chief Complaint Chief Complaint back pain [facility] HPI This very pleasant 48 years old female who works at [employer] presented to the emergency department with back pain so that she has been moving boxes at work she described her pain as sharp constant pain in the left side lumbar area worse when she twisted her back or she bends over she is able to ambulate pain does not radiate down to her legs no numbness or weakness she is able to control her urine and bowel movement Review of Systems Review of Systems Constitutional: Denies fever or chills [] Eyes: Denies change in visual acuity, redness, or eye pain [] HENT: Denies nasal congestion or sore throat [] Respiratory: Denies cough or shortness of breath [] Cardiovascular: No additional information not addressed in HPI [] GI: Denies abdominal pain, nausea, vomiting, bloody stools or diarrhea [] : Denies dysuria or hematuria [] Integument: Denies rash or skin lesions [] Neurologic: Denies headache, focal weakness or sensory changes [] Endocrine: Denies polyuria or polydipsia [] All other systems were reviewed and found to be within normal limits, except as documented in this note. Allergies Allergies Allergies Coded Allergies Type Severity Reaction Last Updated Verified Sulfa (Sulfonamide Antibiotics) Allergy Mild joints swell 08/23/15 Yes Physical Exam Physical Exam Constitutional: Well developed, well nourished, no acute distress, non-toxic appearance. [] HENT: Normocephalic, atraumatic, bilateral external ears normal, oropharynx moist, no oral exudates, nose normal. [] Eyes: PERRLA, EOMI, conjunctiva normal, no discharge. [] Neck: Normal range of motion, no tenderness, supple, no stridor. [] Cardiovascular:Heart rate regular rhythm, no murmur [] Lungs & Thorax: Bilateral breath sounds clear to auscultation [] Abdomen: Bowel sounds normal, soft, no tenderness, no masses, no pulsatile masses. [] Skin: Warm, dry, no erythema, no rash. [] Back: Left lumbar spine area tenderness, no CVA tenderness. [] Extremities: No tenderness, no cyanosis, no clubbing, ROM intact, no edema. [] Neurologic: Alert and oriented X 3, normal motor function, normal sensory function, no focal deficits noted. [] Psychologic: Affect normal, judgement normal, mood normal. [] EKG EKG [] Radiology/Procedures Radiology/Procedures [] Course & Med Decision Making Course & Med Decision Making Pertinent Labs and Imaging studies reviewed. (See chart for details) [] Final Impression Final Impression [] Problems: (1) Back pain Qualifiers: Dragon Disclaimer Dragon Disclaimer This electronic medical record was generated, in whole or in part, using a voice recognition dictation system. MAGDA TARIQ MD Aug 26, 2018 03:04
[2018-08-26] MEDS: HYDROcodone/APAP 5/325MG 1 TAB TABLET PO ONE (03:14)
[2018-08-26] MEDS: KETOROLAC 60 MG/2 ML VIAL. IM ONE (03:14)
== END 2018-08-26 03:30 | disposition home or self-care (01) ==
LOC: ER 02:47
DX: M54.5 Low back pain (principal); Z88.2 Allergy status to sulfonamides
CPT/HCPCS: 96372; 99283; J1885

== ENCOUNTER → 2018-10-23 | Outpatient (CLI) | payer BC ==
[~2018-10-23] MED LIST changes: +HYDR-1179 PO; +HYDR-3165 PO; -HYDR-79 PO; +LOSA100T14 PO; -LOSA100T7 PO; -LOSA50TA2 PO; +LOSA50TA86 PO; +MELO7.5T5 PO
--- NOTE | 2018-10-23 16:08 | RAD ---
Chest, 2 views, 10/23/2018: HISTORY: Cough The heart size and pulmonary vascularity are normal. No pulmonary infiltrate is seen. There is no evidence of pleural fluid. There is a mild thoracic scoliosis. IMPRESSION: No acute cardiopulmonary abnormality is detected. Electronically signed by: Preet Crowder MD (10/23/2018 4:04 PM) [facility]
== END | disposition home or self-care (01) ==
LOC: DXRAD 07:35
PROVIDERS: ATTEND Physician Assistant Medical
DX: M41.84 Other forms of scoliosis, thoracic region (principal)
CPT/HCPCS: 71046

== ENCOUNTER → 2019-03-10 | Outpatient (CLI) | payer BC ==
--- NOTE | 2019-03-18 13:54 | RAD ---
DATE: 03/10/2019 EXAM: MAMMO JONE SCREENING BILATERAL HISTORY: Routine screening COMPARISON: 10/04/2015 This study was interpreted with the benefit of Computerized Aided Detection (CAD). Breast Density: SCATTERED The breast parenchyma shows scattered fibroglandular densities. Breast parenchyma level B. FINDINGS: 2-D and 3-D tomosynthesis imaging was performed in CC and MLO projections. No new or enlarging breast densities are seen. No suspicious microcalcifications are evident. IMPRESSION: Stable mammograms without evidence of malignancy. BI-RADS CATEGORY: 1 NEGATIVE RECOMMENDED FOLLOW-UP: 12M 12 MONTH FOLLOW-UP PQRS compliance statement: Patient information was entered into a reminder system with a target due date for the next mammogram. Mammography is a sensitive method for finding small breast cancers, but it does not detect them all and is not a substitute for careful clinical examination. A negative mammogram does not negate a clinically suspicious finding and should not result in delay in biopsying a clinically suspicious abnormality. "Our facility is accredited by the [employer] Mammography Program."
== END | disposition home or self-care (01) ==
LOC: MAMMO 08:01
PROVIDERS: ATTEND Physician Assistant Medical
DX: Z12.31 Encounter for screening mammogram for malignant neoplasm of breast (principal)
CPT/HCPCS: 77063; 77067

== ENCOUNTER 2019-04-30 20:50 | Observation (INO) | payer BC ==
[~2019-04-30] VITALS: Ht 160 cm; Wt 71.7 kg
[2019-04-30] MEDS ORDERED: cloNIDine TTS-2 1 PATCH PATCH TD ONE (21:30)
[2019-04-30] MEDS ORDERED: cloNIDine HCL 0.1 MG TABLET PO ONE (21:30)
[2019-04-30] MEDS ORDERED: IV RINGERS SOLUTION,LACTATED 1,000 ML IV SCH (21:37)
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
[2019-04-30 21:47] LABS: BASO # 0.1 x10^3/uL (0.0-0.2); BASO % 1 % (0-3); EOS % 10 % (0-3); HEMATOCRIT 41.1 % (36.0-47.0); HEMOGLOBIN 14.3 g/dL (12.0-15.5); LYMPH # 2.2 x10^3/uL (1.0-4.8); LYMPH % 22 % (24-48); MEAN CORPUSCULAR HEMOGLOBIN 31 pg (25-35); MEAN CORPUSCULAR HGB CONC 35 g/dL (31-37); MEAN CORPUSCULAR VOLUME 88 fL (79-100); MONO # 0.7 x10^3/uL (0.0-1.1); MONO % 7 % (0-9); NEUT # 5.9 x10^3uL (1.8-7.7); NEUT % 60 % (31-73); PLATELET COUNT 181 x10^3/uL (140-400); RED BLOOD COUNT 4.68 x10^6/uL (3.50-5.40); WHITE BLOOD COUNT 9.9 x10^3/uL (4.0-11.0)
[2019-04-30 22:05] LABS: ALBUMIN 3.7 g/dL (3.4-5.0); CALCIUM 9.4 mg/dL (8.5-10.1); CREATININE 0.9 mg/dL (0.6-1.0); DIRECT BILIRUBIN 0.1 mg/dL (0.0-0.2); GFR 66.8; MAGNESIUM 1.7 mg/dL (1.8-2.4); POTASSIUM 3.5 mmol/L (3.5-5.1); TOTAL BILIRUBIN 0.4 mg/dL (0.2-1.0); TOTAL PROTEIN 8.4 g/dL (6.4-8.2)
[2019-04-30 22:08] LABS: BARBITURATES NEG (NEG); BENZODIAZEPINES NEG (NEG); CANNABINOIDS NEG (NEG); COCAINE NEG (NEG); METHADONE NEG (NEG); OPIATES NEG (NEG); PHENCYCLIDINE NEG (NEG)
[2019-04-30 22:09] LABS: AMPHETAMINE/METHAMPHETAMINE NEG (NEG)
[2019-04-30 22:14] LABS: BACTERIA,URINE 0 /HPF (0-FEW); BILIRUBIN,URINE NEG (NEG); CLARITY,URINE CLOUDY; COLOR,URINE YELLOW; GLUCOSE,URINE NEG (NEG); NITRITE,URINE NEG (NEG); RBC,URINE 0 /HPF (0-2); SQUAMOUS EPITHELIAL CELL,UR OCC /LPF; UROBILINOGEN,URINE 0.2 mg/dL (0.2 mg/dL); WBC,URINE 0 /HPF (0-4)
[2019-04-30 22:19] LABS: PREG TEST PT QUAL NEGATIVE (NEG)
--- NOTE | 2019-04-30 22:28 | RAD ---
CT HEAD WO CONTRAST History: Headache, hypertension, previous craniotomy Comparison: October 05, 2016 Technique: Noncontrast CT imaging was performed of the head. Exposure: One or more of the following individualized dose reduction techniques were utilized for this examination: 1. Automated exposure control 2. Adjustment of the mA and/or kV according to patient size 3. Use of iterative reconstruction technique. Findings: There again have been bifrontal craniotomies. No acute extra-axial or parenchymal hemorrhage is identified. There is no significant intra-axial mass effect, midline shift, or extra-axial fluid collection. The hidalgo-white differentiation of the major vascular territories is preserved. There is old lacunar infarct versus prominent perivascular space right basal ganglia as seen previously. There is again some volume loss of the cerebellum. The ventricles, sulci, and cisterns are within normal limits in size and configuration. The mastoid air cells and the visualized paranasal sinuses are aerated. No acute calvarial abnormality is identified. Impression: 1. No acute intracranial abnormality is identified. Electronically signed by: Frandy Christopher MD (04/30/2019 10:25 PM) [facility]
[2019-04-30] MEDS ORDERED: MAGNESIUM SULFATE 2GM 50 ML IV ONE (22:45)
[2019-04-30] MEDS: oxyCODONE/APAP 5/325 1 TAB TABLET PO ONE (22:45)
[2019-04-30] MEDS ORDERED: oxyCODONE/APAP 5/325 1 TAB TABLET ONE (22:48)
[2019-04-30 22:54] LABS: SEDIMENTATION RATE 23 (0-25)
[2019-04-30] MEDS ORDERED: IOHEXOL 350 MG/ML 100 ML VIAL. IV ONE (23:00)
[2019-04-30] MEDS ORDERED: ONDANSETRON PF 4 MG/2 ML VIAL. IV PRN (23:45)
[2019-04-30] MEDS ORDERED: oxyCODONE/APAP 5/325 1 TAB TABLET PO PRN (23:45)
--- NOTE | 2019-05-01 01:59 | RAD ---
CT angiogram of the chest with contrast: Reason for examination: Elevated d-dimer with dyspnea. Helical images were obtained through the chest with intravenous administration of 90 cc Omnipaque 350 using PE protocol. 3-D MIPS reconstruction was performed in sagittal and coronal planes. Exposure: One or more of the following individualized dose reduction techniques were utilized for this examination: 1. Automated exposure control 2. Adjustment of the mA and/or kV according to patient size 3. Use of iterative reconstruction technique. The trachea and mainstem bronchi show no intraluminal lesions. No abnormality seen at the esophagus. The thoracic aorta shows no aneurysmal dilatation or evidence of dissection. The heart size is normal with no pericardial effusion. There is no evidence of pulmonary embolus. There is some linear atelectasis at the right lung base. No other infiltrates or pleural effusions are seen. No abnormality seen at the visualized portions of the liver, spleen or adrenal glands. IMPRESSION: Linear atelectasis at the right lung base. No evidence of pulmonary embolus. Electronically signed by: Marilin Lee MD (05/01/2019 1:56 AM) [facility]
--- NOTE | 2019-05-01 02:16 | RAD ---
Bilateral Lower Extremity Venous Doppler: Reason for examination: Bilateral lower extremity pain. The lower extremity venous systems bilaterally were evaluated from the common femoral and greater saphenous veins distally to the calf veins with grayscale imaging, color-flow imaging and spectral analysis. There is normal blood flow without venous thrombosis. There is normal response of the venous systems to compression and augmentation. Impression: No deep venous thrombosis in the lower extremity venous systems bilaterally. Electronically signed by: Marilin Lee MD (05/01/2019 2:13 AM) [facility]
[2019-05-01 02:43] VITALS: BP 176/83
[2019-05-01] MEDS ORDERED: METF500T16 PO (03:24)
[2019-05-01] MEDS ORDERED: SEMA0.25 SQ (03:26)
[2019-05-01] MEDS ORDERED: OLME40TA12 PO (03:26)
[2019-05-01 06:18] VITALS: BP 121/72
[2019-05-01 06:37] LABS: BASO # 0.1 x10^3/uL (0.0-0.2); BASO % 1 % (0-3); EOS # 0.9 x10^3/uL (0.0-0.7); EOS % 12 % (0-3); HEMATOCRIT 37.9 % (36.0-47.0); LYMPH # 1.9 x10^3/uL (1.0-4.8); LYMPH % 25 % (24-48); MEAN CORPUSCULAR HEMOGLOBIN 30 pg (25-35); MEAN CORPUSCULAR HGB CONC 34 g/dL (31-37); MEAN CORPUSCULAR VOLUME 88 fL (79-100); MONO # 0.7 x10^3/uL (0.0-1.1); MONO % 9 % (0-9); NEUT # 4.2 x10^3uL (1.8-7.7); NEUT % 54 % (31-73); PLATELET COUNT 151 x10^3/uL (140-400); RED CELL DISTRIBUTION WIDTH 14.1 % (11.5-14.5); WHITE BLOOD COUNT 7.7 x10^3/uL (4.0-11.0)
[2019-05-01 06:54] LABS: CALCIUM 8.6 mg/dL (8.5-10.1); CREATININE 0.9 mg/dL (0.6-1.0); GFR 66.8; POTASSIUM 3.6 mmol/L (3.5-5.1)
[2019-05-01] MEDS ORDERED: IPRATRPIUM/ALBUTEROL 0.5/2.5MG 3 ML NEBU. NEB SCH (08:00)
[2019-05-01 08:03] VITALS: BP 142/76
[2019-05-01] MEDS ORDERED: ENOXAPARIN ** NOTE DOSE ** SYRINGE SQ SCH (09:00)
[2019-05-01] MEDS ORDERED: TEMAZEPAM 15 MG CAPSULE PO PRN (09:30)
[2019-05-01 09:40] VITALS: BP 141/75
--- NOTE | 2019-05-01 09:52 | DS ---
DATE OF DISCHARGE: 05/01/2019 ATTENDING PHYSICIAN: Dr. Yates FINAL DISCHARGE DIAGNOSES: 1. Musculoskeletal tension headache. 2. Labile hypertension, treated. 3. History of diabetes. 4. History of traumatic brain injury. HISTORY AND PHYSICAL: This pleasant 48-year-old female has had tension headaches. She is under a lot of stress. Mom was recently in the hospital for aneurysm repair. Blood pressure was elevated at 180s to 190s. She had headaches. They had recently stopped her lisinopril. PHYSICAL EXAMINATION: Please see the dictated note. PERTINENT LABORATORY AND X-RAY STUDIES: Normal CBC and chemistry panel. She had a CT of the head, which showed no acute pathology. CT of the chest done for an elevated D-dimer showed no evidence of blood clots. No acute infiltrates identified. Incidental finding of mild atelectasis, linear in nature is clinically not relevant. COURSE IN THE HOSPITAL: The patient was admitted. She was monitored. Blood pressure improved. She was given some clonidine. Diet was advanced. I examined the patient, had a long discussion with her regarding short-term and long-term plans. I recommended that she restart her lisinopril 20 mg daily. She will also record her daily blood pressure readings and bring it into her primary care provider Lisa Duran in 2 weeks. In addition, because of underlying depression issues, I strongly recommend her discussing this with Roger regarding psychotherapy and pharmacotherapy. In the meantime, I gave her a small script for Restoril 30 mg at bedtime to help her get some good night sleep. She understands the situation. I reassured her she did not have a stroke or blood clot. She was discharged then from our hospital in stable condition with explicit instructions and followup care. AMY YATES MD DR: GALILEA/patrick JOB#: [id number] / [id number] LISA Fuller
[2019-05-01] MEDS ORDERED: LISI-378 PO (10:01)
[2019-05-01] MEDS ORDERED: TEMA30CA6 PO (10:01)
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
[2019-05-02] MEDS ORDERED: LEVOTHYROXINE 50 MCG TABLET PO SCH (06:00)
--- NOTE | 2019-05-03 15:09 | EKG ---
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
--- NOTE | 2019-05-03 15:18 | EKG ---
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
== END 2019-05-01 10:25 | disposition home or self-care (01) ==
LOC: ER 20:50 → INTOOBSV 23:30 → ICU 23:30
PROVIDERS: ADMIT Hospitalist; ATTEND Hospitalist
DX: G44.209 Tension-type headache, unspecified, not intractable (principal); E03.9 Hypothyroidism, unspecified; E11.9 Type 2 diabetes mellitus without complications; F32.9 Major depressive disorder, single episode, unspecified; I10 Essential (primary) hypertension; Z87.820 Personal history of traumatic brain injury; Z90.49 Acquired absence of other specified parts of digestive tract; Z90.710 Acquired absence of both cervix and uterus; E05.90 Thyrotoxicosis, unspecified without thyrotoxic crisis or storm; G43.909 Migraine, unspecified, not intractable, without status migrainosus; Z88.2 Allergy status to sulfonamides; E83.42 Hypomagnesemia
CPT/HCPCS: 36415; 70450; 71275; 80048; 80076; 80307; 81001; 82550; 82947; 83690; 83735; 83880; 84443; 84484; 84703; 85025; 85379; 85610; 85651; 85730; 87641; 93005; 93970; 96365; 99284; G0378; J3475; J7120; Q9967; 96361; 96366; G0379; 99285-25

== ENCOUNTER → 2020-05-22 | Outpatient (CLI) | payer BC ==
[~2020-05-22] MED LIST changes: +LISI-378 PO; +METF500T16 PO; +OLME40TA12 PO; +SEMA0.25 SQ; +TEMA30CA6 PO
--- NOTE | 2020-05-22 17:59 | RAD ---
DATE: 05/22/2020 11:14 AM EXAM: DIGITAL SCREEN BILAT W/CAD HISTORY: Screening COMPARISON: 03/10/2019 Bilateral CC and MLO views of the breasts were performed. Bilateral breast tomosynthesis was performed in CC and MLO projections. This study was interpreted with the benefit of Computerized Aided Detection (CAD). FINDINGS: Breast Density: FATTY The Breast Parenchyma is primarily fatty replaced. Breast parenchyma level density A. No suspicious masses, microcalcifications or architectural distortion is present to suggest malignancy in either breast. The visualized axillae are unremarkable. IMPRESSION: No mammographic evidence of malignancy. BI-RADS CATEGORY: 1 NEGATIVE RECOMMENDED FOLLOW-UP: 12M 12 MONTH FOLLOW-UP Annual screening mammography is recommended, unless clinically indicated sooner based on symptoms or change in physical exam. PQRS compliance statement: Patient information was entered into a reminder system with a target due date 05/23/2021 for the next mammogram. Mammography is a sensitive method for finding small breast cancers, but it does not detect them all and is not a substitute for careful clinical examination. A negative mammogram does not negate a clinically suspicious finding and should not result in delay in biopsying a clinically suspicious abnormality. "Our facility is accredited by the [employer] Mammography Program."
== END ==
LOC: MAMMO 11:12
PROVIDERS: ATTEND Physician Assistant Medical
DX: Z12.31 Encounter for screening mammogram for malignant neoplasm of breast (principal)
CPT/HCPCS: 77067

== ENCOUNTER 2020-06-24 22:47 | Emergency (ER) | payer BC ==
[~2020-06-24] VITALS: Ht 160 cm; Wt 68.2 kg
[2020-06-24] MEDS: PROCHLORPERAZINE 10 MG/2 ML VIAL. IV ONE (23:37)
[2020-06-24] MEDS: DEXAMETHASONE SOD PHOS 10 MG/ML VIAL. IV ONE (23:37)
[2020-06-24] MEDS: IV NORMAL SALINE 1,000ML 1,000 ML IV SCH (23:37)
[2020-06-24] MEDS: diphenhydrAMINE 50 MG/ML VIAL IVP ONE (23:37)
[2020-06-24] MEDS: hydrALAZINE 20 MG/ML VIAL. IV ONE (23:38)
[2020-06-25 00:27] LABS: CALCIUM 9.1 mg/dL (8.5-10.1); GFR 58.9; POTASSIUM 3.3 mmol/L (3.5-5.1)
[2020-06-25] MEDS ORDERED: CONTRAST GIVEN. MC PRN (00:30)
[2020-06-25 00:35] LABS: BASO # 0.1 x10^3/uL (0.0-0.2); BASO % 1 % (0-3); EOS # 0.1 x10^3/uL (0.0-0.7); EOS % 1 % (0-3); HEMATOCRIT 38.5 % (36.0-47.0); HEMOGLOBIN 12.7 g/dL (12.0-15.5); LYMPH # 1.1 x10^3/uL (1.0-4.8); LYMPH % 11 % (24-48); MEAN CORPUSCULAR HEMOGLOBIN 29 pg (25-35); MEAN CORPUSCULAR HGB CONC 33 g/dL (31-37); MEAN CORPUSCULAR VOLUME 86 fL (79-100); MONO # 0.3 x10^3/uL (0.0-1.1); MONO % 3 % (0-9); NEUT # 8.6 x10^3uL (1.8-7.7); NEUT % 85 % (31-73); PLATELET COUNT 239 x10^3/uL (140-400); RED BLOOD COUNT 4.48 x10^6/uL (3.50-5.40); RED CELL DISTRIBUTION WIDTH 14.3 % (11.5-14.5); WHITE BLOOD COUNT 10.2 x10^3/uL (4.0-11.0)
[2020-06-25] MEDS: IOHEXOL 350 MG/ML 100 ML VIAL. IV ONE (00:59)
[2020-06-25] MEDS ORDERED: metformin (01:30)
--- NOTE | 2020-06-25 01:47 | RAD ---
CT head without contrast. CT angiography head and neck with contrast. PQRS statement: CT scans at this facility use dose reduction including either automated exposure control, iterative reconstructions, and /or weight based radiation dosing via mA and kV modification when appropriate to reduce radiation dose to as low as reasonably achievable. Stenosis calculations for CT, MR, and conventional angiography are based upon measurements of the distal ICA diameter in accordance with the NASCET methodology. Stenosis calculations for carotid ultrasound studies are derived from validated velocity criteria which are known to correlate with the NASCET methodology. History: Headache. Nausea and vomiting. Hypertension. TECHNIQUE: Noncontrast imaging of the head and postcontrast CT imaging the head and neck with 3-D MIP reconstructions of the arteries acquired with 60 mL Omnipaque 350 intravenous contrast. COMPARISON: CT head April 30, 2019. CT head without contrast findings: Beam hardening artifact from the skull base across the brainstem a decrease sensitivity to detect subtle pathology at this region. Cyst inferior right basal ganglia is stable. No intracranial hemorrhage, mass, hydrocephalus or infarction. No acute ischemic change. Left frontal craniotomy. This is stable. Orbits and mastoids are unremarkable. CT angiography neck findings: No ostial stenosis of the vessels from the aortic arch. Codominant vertebral arteries demonstrate no plaque, dissection, thrombus, stenosis or occlusion. Right carotid artery demonstrates mild plaquing at the internal carotid without significant stenosis with narrowing of no more than 10 percent. No dissection, thrombus or occlusion. Left carotid artery demonstrates minimal partially calcified plaque at the bifurcation and internal carotid without significant stenosis, dissection, thrombus or occlusion. Numerous left lower thyroid lobe hypervascular enhancing nodules measuring up to [address] angiography head findings: There is a presumed common trunk of the right anterior inferior and posterior inferior cerebellar arteries with no takeoff of the posterior inferior cerebellar from the vertebral artery, an anatomic variant. type left posterior cerebral artery. The left paraclinoid internal carotid artery demonstrates a oblong saccular 4 x 2 mm aneurysm adjacent of the takeoff of the posterior communicating artery thin axial image 330. Separately the right paraclinoid internal carotid artery demonstrates a similar 3 mm saccular aneurysm. No thrombus, significant stenosis or occlusion. IMPRESSION: 1. No acute intracranial CT abnormality. 2. No large vessel occlusion. 3. 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 4. Minimal plaquing of the cervical carotid arteries. No evidence of significant stenosis, thrombus or occlusion. Electronically signed by: Oscar Olivia MD (06/25/2020 1:43 AM) [facility]
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
[2020-06-25 06:20] VITALS: BP 141/88
[2020-06-25 06:45] LABS: CSF CLARITY CLEAR; CSF COLOR COLORLESS; CSF RBC COUNT 153; CSF WBC COUNT 0
[2020-06-25 06:49] LABS: CSF PROTEIN 43.6 mg/dL (15.0-45.0)
== END 2020-06-25 09:19 | disposition short-term general hospital (02) ==
LOC: ER 22:47
DX: R51 Headache (principal); I67.1 Cerebral aneurysm, nonruptured; R11.2 Nausea with vomiting, unspecified; I10 Essential (primary) hypertension; F32.9 Major depressive disorder, single episode, unspecified; E11.9 Type 2 diabetes mellitus without complications; K21.9 Gastro-esophageal reflux disease without esophagitis; E05.90 Thyrotoxicosis, unspecified without thyrotoxic crisis or storm; Z88.2 Allergy status to sulfonamides
CPT/HCPCS: 36415; 62270; 70450; 70496; 70498; 80048; 82945; 84157; 85025; 85610; 85730; 89051; 96361; 96374; 96375; 96376; 99285; J0360; J0780; J1100; J1200; J2060; J7030; Q9967; 99291-25

== ENCOUNTER → 2020-08-21 | Outpatient (CLI) | payer BC ==
[~2020-08-21] MED LIST changes: +metformin
--- NOTE | 2020-08-21 14:15 | RAD ---
EXAMINATION: THYROID ULTRASOUND, 08/21/2020 10:00 AM CLINICAL INDICATION: Thyroid nodule TECHNIQUE: Grayscale and color Doppler sonographic images of the thyroid are submitted for interpretation. COMPARISON: CT neck 06/25/2020 FINDINGS: The right thyroid lobe measures 4.2 x 1.2 x 1.1 cm. The left thyroid lobe measures 4.7 x 1.9 x 2.3 cm. The isthmus measures 2 mm. Normal background thyroid parenchyma. There are 3 left thyroid nodules. All of the nodules nodules are solid, isoechoic with smooth margins and no internal calcifications. These are wider than tall. The 2 nodules in the inferior pole measure 1.6 x 1.5 x 1.2 cm and 1.6 x 1.7 x 1.3 cm. A third nodule in the midpole measures 1.3 x 1.4 x 1.2 cm. IMPRESSION: 3 solid mildly suspicious (TI-RADS 3) nodules in the left thyroid lobe. These do not meet criteria for FNA based on size. Recommend follow-up ultrasound in one year to ensure stability. Electronically signed by: Vicki Islas MD (08/21/2020 2:12 PM) [id number]
== END | disposition home or self-care (01) ==
LOC: US 09:34
PROVIDERS: ATTEND Physician Assistant Medical
DX: E04.2 Nontoxic multinodular goiter (principal)
CPT/HCPCS: 76536

== ENCOUNTER → 2020-10-20 | Outpatient (CLI) | payer BC ==
[~2020-10-20] MED LIST changes: +CITA10TA4 PO; +OLME20TA17 PO
== END ==
LOC: LAB 08:45
PROVIDERS: ATTEND Nurse Anesthetist, Certified Registered
DX: Z01.812 Encounter for preprocedural laboratory examination (principal); Z20.828 Contact with and (suspected) exposure to other viral communicable diseases
CPT/HCPCS: U0003

== ENCOUNTER → 2020-10-24 | Day surgery (SDC) | payer BC ==
[~2020-10-24] MED LIST changes: +IPRATRPIUM/ALBUTEROL 0.5/2.5MG 3 ML NEBU. NEB PRN; +IV RINGERS SOLUTION,LACTATED 1,000 ML IV SCH; +MIDAZOLAM HCL PF 2 MG/2 ML VIAL. IV ONE; +PROPOFOL 10,000 MCG/ML (20ML) VIAL IV ONE
[2020-10-24 12:10] VITALS: BP 104/72
== END | disposition home or self-care (01) ==
LOC: SURG 10:41
PROVIDERS: ATTEND Internal Medicine Gastroenterology
DX: Z12.11 Encounter for screening for malignant neoplasm of colon (principal); K63.89 Other specified diseases of intestine; D64.9 Anemia, unspecified; E11.9 Type 2 diabetes mellitus without complications; I10 Essential (primary) hypertension; E78.5 Hyperlipidemia, unspecified; E03.9 Hypothyroidism, unspecified; F41.9 Anxiety disorder, unspecified; J45.909 Unspecified asthma, uncomplicated; Z79.899 Other long term (current) drug therapy; Z79.82 Long term (current) use of aspirin; Z79.84 Long term (current) use of oral hypoglycemic drugs; Z90.710 Acquired absence of both cervix and uterus; Z98.890 Other specified postprocedural states; Z88.1 Allergy status to other antibiotic agents
CPT/HCPCS: 45378; J2704; J7120

== ENCOUNTER 2020-11-03 11:01 | Emergency (ER) | payer BC ==
[~2020-11-03] VITALS: Ht 160 cm; Wt 74.1 kg
[~2020-11-03 11:01] MED LIST changes: -IPRATRPIUM/ALBUTEROL 0.5/2.5MG 3 ML NEBU. NEB PRN; -IV RINGERS SOLUTION,LACTATED 1,000 ML IV SCH; -MIDAZOLAM HCL PF 2 MG/2 ML VIAL. IV ONE; -PROPOFOL 10,000 MCG/ML (20ML) VIAL IV ONE
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
[2020-11-03] MEDS ORDERED: KETOROLAC 60 MG/2 ML VIAL. IM ONE (11:30)
[2020-11-03] MEDS ORDERED: diazePAM 5 MG TABLET. PO ONE (11:30)
--- NOTE | 2020-11-03 12:10 | RAD ---
Examination: XR LUMBAR SPINE 2-3V History: Reason: back pain / Spl. Instructions: / History: Comparison/Correlation: None Findings: 3 images of the lumbar spine were obtained. Right upper quadrant surgical clips are present right degenerative prosthesis is present. Alignment of the lumbar spine is within normal limits. Mod erate L2-3 disc space narrowing is present with spurring. Moderate L4-5 disc space narrowing is prese nt. Degenerative changes of the lumbar facet joints at L5-S1 noted. Transitional L5 vertebra is prese nt. No acute fracture or bone destruction. Metallic coil in the right upper pelvic region noted. Geri elate with history of intervention. Impression: Mild to moderate degenerative changes. No suspicious acute process. Electronically signed by: Lake Haynes MD (11/03/2020 12:07 PM) [id number]
[2020-11-03] MEDS ORDERED: HYDR-3165 PO (12:37)
[2020-11-03] MEDS ORDERED: METH4TAB2 PO (12:37)
[2020-11-03] MEDS ORDERED: DIAZ5TAB PO (12:37)
[2020-11-03 12:48] VITALS: BP 113/75
== END 2020-11-03 12:48 | disposition home or self-care (01) ==
LOC: ER 11:01
DX: M54.5 Low back pain (principal); M19.90 Unspecified osteoarthritis, unspecified site; F32.9 Major depressive disorder, single episode, unspecified; E11.9 Type 2 diabetes mellitus without complications; G43.909 Migraine, unspecified, not intractable, without status migrainosus; K21.9 Gastro-esophageal reflux disease without esophagitis; E05.90 Thyrotoxicosis, unspecified without thyrotoxic crisis or storm; Z90.89 Acquired absence of other organs; Z90.49 Acquired absence of other specified parts of digestive tract; Z90.710 Acquired absence of both cervix and uterus; Z98.890 Other specified postprocedural states; Z88.2 Allergy status to sulfonamides
CPT/HCPCS: 72100; 96372; 99283; J1885

== ENCOUNTER → 2020-12-20 | Outpatient (CLI) | payer BC ==
[~2020-12-20] MED LIST changes: +DIAZ5TAB PO; +METH4TAB2 PO
--- NOTE | 2020-12-20 09:28 | RAD ---
Examination: 1. Pelvis and left hip 2 views 2. L-spine 3 views INDICATION: Left hip pain and back pain COMPARISON: Pelvis and right hip x-rays of 2016, L-spine x-rays of 11/03/2020 FINDINGS: The pelvis and left hip x-rays show similar appearance to right hip arthroplasty with cerclage wire a round the proximal right femur near the lesser trochanter. Additionally, embolic coils are present in the right hemipelvis soft tissues overlying the sacrum and iliac bone. The left hip however shows no fracture, dislocation and no significant degenerative change. Soft tiss ues otherwise unremarkable. L-spine AP, lateral and coned-down lateral views shows 5 lumbar type vertebrae in anatomic alignment. No fracture or aggressive bony lesions are seen. There are facet hypertrophic changes present at L4- L5 and L5-S1. Mild L4-L5 disc space narrowing is redemonstrated, unchanged in the interval. Mild L2-L 3 disc space narrowing with endplate osteophytic spurring is also noted, similar to prior. L5 is part ially sacralized. IMPRESSION: 1. No acute findings in the left hip to explain left hip pain status post right hip arthroplasty and coil embolization of the vessels in the right hemipelvis. 2. Stable degenerative changes in the lumbar spine with no acute fracture or aggressive osseous lesio ns and no malalignment. Electronically signed by: Flor Epps MD (12/20/2020 9:25 AM) [id number]
== END ==
LOC: PMG 08:02
PROVIDERS: ATTEND Physician Assistant Medical
DX: M47.816 Spondylosis without myelopathy or radiculopathy, lumbar region (principal); M25.552 Pain in left hip
CPT/HCPCS: 72100; 73502

== ENCOUNTER → 2021-09-05 | Outpatient (CLI) | payer BC ==
[~2021-09-05] MED LIST changes: -LISI2.5T PO; +LISI2.5T12 PO
--- NOTE | 2021-09-05 17:39 | RAD ---
Bilateral digital screening 2-D and 3-D (digital breast tomosynthesis) mammogram: Reason for examination: Routine screening. Comparison: Mammograms from 05/22/2020 and 03/10/2019. Interpretation was made with the benefit of CAD. FINDINGS: Breast density: Category B. There are scattered areas of fibroglandular density. No suspicious breast mass, malignant appearing calcifications, or architectural distortion is seen. IMPRESSION: No evidence of malignancy. Assessment: BI-RADS 1. Negative. Recommendation: Routine screening mammograms. The patient will receive a letter with the results in the mail. Patient information will be entered i nto the mammography reminder system with a target recall date for the next mammogram. A reminder tremayne er will be generated. Electronically signed by: Sirisha Garcia MD (09/05/2021 5:36 PM) [id number]
== END ==
LOC: MAMMO 11:37
PROVIDERS: ATTEND Physician Assistant Medical
DX: Z12.31 Encounter for screening mammogram for malignant neoplasm of breast (principal)
CPT/HCPCS: 77063; 77067

== ENCOUNTER 2021-11-01 05:35 | Emergency (ER) | payer BC, OTHER ==
[~2021-11-01] VITALS: Ht 160 cm; Wt 71.3 kg
[~2021-11-01 05:35] MED LIST changes: -CITA10TA4 PO; +CITA10TA5 PO
[2021-11-01 05:45] VITALS: BP 180/122
[2021-11-01] MEDS ORDERED: IV NORMAL SALINE 1,000ML 1,000 ML IV ONE (07:00)
[2021-11-01] MEDS ORDERED: ONDANSETRON PF 4 MG/2 ML VIAL. IVP ONE (07:00)
[2021-11-01] MEDS ORDERED: KETOROLAC 15 MG/ML VIAL. IVP ONE (07:00)
[2021-11-01] MEDS ORDERED: FAMOTIDINE 20 MG/2 ML VIAL IVP ONE (07:00)
[2021-11-01 07:47] LABS: BASO % 0 % (0-3); EOS % 0 % (0-3); HEMATOCRIT 43.7 % (36.0-47.0); HEMOGLOBIN 14.8 g/dL (12.0-15.5); LYMPH # 0.8 x10^3/uL (1.0-4.8); LYMPH % 6 % (24-48); MEAN CORPUSCULAR HEMOGLOBIN 30 pg (25-35); MEAN CORPUSCULAR HGB CONC 34 g/dL (31-37); MEAN CORPUSCULAR VOLUME 90 fL (79-100); MONO # 0.5 x10^3/uL (0.0-1.1); MONO % 3 % (0-9); NEUT # 12.9 x10^3uL (1.8-7.7); NEUT % 91 % (31-73); PLATELET COUNT 138 x10^3/uL (140-400); RED BLOOD COUNT 4.87 x10^6/uL (3.50-5.40); RED CELL DISTRIBUTION WIDTH 14.2 % (11.5-14.5); WHITE BLOOD COUNT 14.2 x10^3/uL (4.0-11.0)
--- NOTE | 2021-11-01 07:47 | PHYS DOC ---
Past History Past Medical History: Arthritis, Depression, Diabetes, GERD, High Cholesterol, Hypertension, Hyperthyroid, Migraines, Other Past Surgical History: Appendectomy, Cholecystectomy, , Hip Replacement, Hysterectomy, Oophorectomy, Other Additional Past Surgical Histo: frontal crani; aneurisyms- cerebral;trach;rtknee;wisdom teeth Smoking: Non-smoker Alcohol Use: Occasionally Drug Use: None General Adult EDM: Chief Complaint: NAUSEA/VOMITING/DIARRHEA HPI: HPI: Patient is a 51 year old female who presents with nausea and vomiting for the past twelve hours. She states she ate a salad from a grocery store at 5pm yesterday and began vomiting at 6pm yesterday. She estimates about 10 episodes of vomiting since onset. Her is also having episodes of vomiting that began while in the ED with the patient. She denies any other new medications or foods. She associates nausea but denies any abdominal pain. She has had normal bowel movements. She is not having urinary frequency or dysuria. She notes constant midback pain, neck pain, and a headache that all began at the same time as her vomiting. She denies a history of headaches or back pain. Pt associates chills, fatigue, and minimal dizziness but denies fever or muscle aches. She last took her Metformin yesterday morning. She tried taking Pepto Bismol for her symptoms but was not able to keep it down. She has not taken any medication for the pain. She otherwise has no complaints. Review of Systems: Review of Systems: Constitutional: Positive for chills and fatigue, Denies fever Eyes: Denies redness or eye pain HENT: Positive for neck pain, negative for neck stiffness Respiratory: Denies cough or shortness of breath Cardiovascular: Denies chest pain or palpitations GI: Positive for nausea and vomiting, Denies abdominal pain, diarrhea : Denies dysuria, frequency, or hematuria Musculoskeletal: Positive for back pain, negative or joint pain Neurologic: Positive for headache and dizziness, denies sensory changes Complete systems were reviewed and found to be within normal limits, except as documented in this note. Current Medications: Current Meds: Current Medications Medications (Trade) Dose Ordered Sig/Arian Start Time Stop Time Status Last Admin Dose Admin Famotidine (Pepcid Vial) 20 mg 1X ONCE 11/01/21 07:00 11/01/21 07:01 Ketorolac Tromethamine (Toradol 15mg Vial) 15 mg 1X ONCE 11/01/21 07:00 11/01/21 07:01 Ondansetron HCl (Zofran) 4 mg 1X ONCE 11/01/21 07:00 11/01/21 07:01 Sodium Chloride 1,000 ml @ 1,000 mls/hr 1X ONCE 11/01/21 07:00 11/01/21 07:59 Allergies: Allergies: Allergies Coded Allergies Type Severity Reaction Last Updated Verified Sulfa (Sulfonamide Antibiotics) Allergy Mild joints swell 11/01/21 Yes Physical Exam: PE: Constitutional: Well developed, minimal acute distress secondary to nausea and pain HENT: Normocephalic, atraumatic, dry mucous membranes Eyes: Conjunctiva normal, no discharge Neck: Normal range of motion, no tenderness, supple Lungs & Thorax: Tachycardia, lungs CTAB, No respiratory distress, equal chest rise and fall Abdomen: Soft, minimal tenderness to palpation RUQ, no guarding, normal bowel sounds Skin: Warm, dry, no erythema, no rash Back: Minimal tenderness to palpation of lower thoracic spine, no CVA tenderness Extremities: No tenderness, no edema Neurologic: Alert and oriented X 3, no focal deficits noted Psychologic: Affect normal, judgment normal Current Patient Data: Vital Signs: Vital Signs Date Time Temp Pulse Resp B/P (MAP) Pulse Ox O2 Delivery O2 Flow Rate FiO2 11/01/21 05:45 97.9 126 20 180/122 (141) 97 Room Air EKG: EKG: @0647: sinus tachycardia, 119 BPM, No ST elevation, NE 162, QRS 78, QT/QTc 328/469 [] Radiology/Procedures: Radiology/Procedures: [] Heart Score: C/O Chest Pain: No HEART Score for Chest Pain: HEART Score for Chest Pain Response (Comments) Value History Slighlty/Non-Suspicious 0 ECG Normal 0 Age >45 - < 65 1 Risk Factors >3 Risk Factors or Hx CAD 2 Troponin < Normal Limit 0 Total 3 Risk Factors: Risk Factors: DM, Current or recent (<one month) smoker, HTN, HLP, family history of CAD, obesity. Risk Scores: Score 0 - 3: 2.5% MACE over next 6 weeks - Discharge Home Score 4 - 6: 20.3% MACE over next 6 weeks - Admit for Clinical Observation Score 7 - 10: 72.7% MACE over next 6 weeks - Early Invasive Strategies Course & Med Decision Making: Course & Med Decision Making Pertinent Lab studies reviewed. (See chart for details) Patient presented after 12 hours of nausea and vomiting after eating a salad at 5PM yesterday. IV fluids, nausea medications, pain medication, and antacids were given for symptom relief. Lab work ordered to evaluate infectious process and electrolytes. WBC slightly elevated consistent with gastroenteritis. EKG ordered to rule out cardiac etiologies which was negative for acute pathology. Troponin was negative. Urine ordered which showed contaminated specimen with no infection (negative leukocyte esterase, negative nitrites, moderate squamous epithelial cells, >1000 glucose consistent with her blood glucose levels). Blood glucose was 362 and patient was given insulin in the ED. Instructed patient to routinely take her metformin and blood pressure medication as directed. Patient stable for discharge with outpatient follow-up with PCP. Discussed findings and plan with patient, who acknowledges understanding and agreement. [] Dragon Disclaimer: Dragon Disclaimer: This electronic medical record was generated, in whole or in part, using a voice recognition dictation system. Departure Departure: Impression: Primary Impression: Nausea and vomiting Qualified Codes: R11.2 - Nausea with vomiting, unspecified Additional Impressions: HTN (hypertension) Qualified Codes: I10 - Essential (primary) hypertension Hyperglycemia Disposition: HOME / SELF CARE / HOMELESS Condition: STABLE Referrals: OLGA SMITH (PCP) Patient Instructions: Clear Liquid Diet, [id number], Hyperglycemia, [id number], Hypertension, Nausea and Vomiting, [id number] Additional Instructions: Please take your blood pressure medication and diabetes medication as directed. Scripts Famotidine (PEPCID) 20 Mg Tablet 1 TAB PO BID for Gastritis, #10 TAB Prov: MARIAMA CANNON DO 11/01/21 Ondansetron (ONDANSETRON ODT) 4 Mg Tab.rapdis 1 TAB PO PRN Q6-8HRS PRN for NAUSEA, #16 TAB Prov: MARIAMA CANNON DO 11/01/21 MARIAMA CANNON DO Nov 01, 2021 07:47
[2021-11-01 08:20] LABS: BILIRUBIN,URINE NEG (NEG); CLARITY,URINE HAZY; COLOR,URINE YELLOW; GLUCOSE,URINE >=1000 mg/dL (NEG)
[2021-11-01 08:21] LABS: BACTERIA,URINE 0 /HPF (0-FEW); NITRITE,URINE NEG (NEG); SQUAMOUS EPITHELIAL CELL,UR MOD /LPF; UROBILINOGEN,URINE 0.2 mg/dL (0.2 mg/dL)
[2021-11-01 08:43] LABS: POTASSIUM ISTAT 4.1 mmol/L (3.5-5.0)
[2021-11-01 08:44] LABS: HEMOGLOBIN ISTAT 16.7 gm/dL
[2021-11-01] MEDS ORDERED: INSULIN REGULAR 100 UNIT/ML 3ML VIAL. SQ ONE (09:15)
[2021-11-01] MEDS ORDERED: FAMO-63 PO (09:21)
[2021-11-01] MEDS ORDERED: ONDA4TAB12 PO (09:21)
[2021-11-01 10:06] LABS: ALBUMIN 3.7 g/dL (3.4-5.0); ALK PHOS 118 U/L (46-116); ALT (SGPT) 116 U/L (14-59); AST (SGOT) 73 U/L (15-37); LIPASE 350 U/L (73-393); TOTAL BILIRUBIN 0.6 mg/dL (0.2-1.0); TOTAL PROTEIN 8.4 g/dL (6.4-8.2)
[2021-11-01 10:20] LABS: DIRECT BILIRUBIN 0.2 mg/dL (0.0-0.2)
--- NOTE | 2021-11-01 20:59 | EKG ---
[address] [address] Test Date: 2021-11-01 Test Time: 06:47:59 Pat Name: SVETLANA VINES Department: Room: Gender: F Card Cleaner: ZULEIMA : 1970 Requested By: MARIAMA CANNON Order Number: [id number] Reading MD: Mango Salgado Measurements Intervals [place] Rate: 119 P: 12 RI: 162 QRS: 17 QRSD: 78 T: 39 QT: 328 QTc: 469 Interpretive Statements SINUS TACHYCARDIA Electronically Signed On 11-02-2021 15:41:54 LICENSED EMBALMER by Mango Salgado
== END 2021-11-01 10:27 | disposition home or self-care (01) ==
LOC: ER 05:35
DX: E11.65 Type 2 diabetes mellitus with hyperglycemia (principal); R11.2 Nausea with vomiting, unspecified; I10 Essential (primary) hypertension; K21.9 Gastro-esophageal reflux disease without esophagitis; E78.5 Hyperlipidemia, unspecified; Z88.2 Allergy status to sulfonamides; Z90.49 Acquired absence of other specified parts of digestive tract; Z90.710 Acquired absence of both cervix and uterus
CPT/HCPCS: 36415; 80047; 80076; 81001; 82553; 83690; 84484; 85025; 87086; 93005; 96361; 96372; 96374; 96375; 99284; J1815; J1885; J2405; J3490; J7030